=== PATIENT | female | born 1945 | race Caucasian/White ===

== ENCOUNTER 2022-09-21 13:29 | Inpatient (IN) | payer OTHER ==
[~2022-09-21] VITALS: Ht 170.2 cm; Wt 108.9 kg
[2022-09-21] MEDS ORDERED: LIPITOR40 MG PO (13:36)
[2022-09-21] MEDS ORDERED: TRAZODONE HCL50 MG (13:36)
[2022-09-21] MEDS ORDERED: NEURONTIN300 MG (13:36)
[2022-09-21] MEDS ORDERED: PRILOSEC OTC20 MG (13:36)
[2022-09-21] MEDS ORDERED: AZOR 5-40 MG T1 EACH (13:36)
--- NOTE | 2022-09-21 13:37 | NUR ---
PACIENTE FEMENINA ALERTA Y ORIENTADA X3, REFIERE DIFICULTAD AL RESPIRAR.
--- NOTE | 2022-09-21 13:54 | NUR ---
PTE EVALUADA POR LA DRA STAUFFER QUIEN ORDENA EL [place]. MR [place] PADMAJA ORIENTA SOBRE EL [place] ORDENADO, LO CUAL REFIERE ENTENDER, REALIZA PRUEBAS DE LABORATORIO Y ADMINISTRA MEDICAMENTOS NATIVIDAD ORDEN MEDICA Y SIGUIENDO MEDIDAS ASEPTICAS. DESIREE X PORTABLE NOTIFICADOS A PERSONAL DE TURNO. ABG YA REALIZADOS.
--- NOTE | 2022-09-21 17:51 | NUR ---
4:00PM SE RECIBE PTE ALERTA Y ORIENTADA X3 EN CAMA CON BARANDAS ELEVADAS. PTE EN POSICION SEMIFOWLER CON BPAP CON FIO2:50%. PTE CONECTADA A MONITOR CARDIACO Y OXIMETRIA. PTE CANALIZADA EN MANO DERECHA AREA NABILA DE EDEMA Y DE ENROJECIMIENTO. PTE CON ABDOMEN BLANDO Y DEPRESIBLE AL TACTO. PTE CON DEAN DRENANDO 25ML DE ORINA COLOR AMARILLO INTENSO. SE LE REALIZA EKG NATIVIDAD ORDEN MEDICA Y SE EDUCA A PTE SOBRE TRATAMIENTO MEDICO. PTE SE MANTIENE BAJO OBSERVACION POR CAMBIOS.
== END 2022-09-23 13:16 | disposition left against medical advice (07) | DRG 291 ==
LOC: ER 13:29 → ICU-2 18:31 → MEDI 09-22 17:02 → ICU-2 09-22 17:10
PROVIDERS: ADMIT Internal Medicine; ATTEND Internal Medicine
PROC: B246ZZZ Ultrasonography of Right and Left Heart (ICD-10-PCS; principal; 2022-09-21)
PROC: 3E0F7GC Introduction of Other Therapeutic Substance into Respiratory Tract, Via Natural or Artificial Opening (ICD-10-PCS; 2022-09-21)
DX: I11.0 Hypertensive heart disease with heart failure (principal); I50.33 Acute on chronic diastolic (congestive) heart failure; J44.1 Chronic obstructive pulmonary disease with (acute) exacerbation; Z72.0 Tobacco use; Z20.822 Contact with and (suspected) exposure to COVID-19; E11.9 Type 2 diabetes mellitus without complications; Z79.4 Long term (current) use of insulin